=== PATIENT | male | born 1980 | race Caucasian/White ===

== ENCOUNTER 2025-08-16 07:03 | Day surgery (SDC) | payer MEDICARE, MEDICAID ==
[~2025-08-16 07:03] MED LIST: Lactated Ringers 1,000 ML IV SCH
[2025-08-16] MEDS: Lactated Ringers 1,000 ML IV SCH (07:49)
[2025-08-16] MEDS ORDERED: Flumazenil 0.1 MG/ML 5 ML MDV ONE (08:00)
[2025-08-16] MEDS ORDERED: Midazolam 1 MG/ML 2 ML SDV ONE (08:00)
[2025-08-16] MEDS ORDERED: fentaNYL 50 MCG/ML SDV ONE (08:00)
[2025-08-16] MEDS ORDERED: Propofol 200 MG/20 ML SDV ONE (08:00)
[2025-08-16] MEDS ORDERED: Ketamine 200 MG/20 ML MDV ONE (08:00)
[2025-08-16 11:20] VITALS: BP 125/75; PULSE 62
== END 2025-08-16 09:55 | disposition home or self-care (01) ==
LOC: CC.SDS 07:03
PROVIDERS: ATTEND Family Medicine
DX: Z12.11 Encounter for screening for malignant neoplasm of colon (principal); I10 Essential (primary) hypertension; Z79.899 Other long term (current) drug therapy
CPT/HCPCS: 00812; G0121; J2250; J2704; J3010; J3490; J7120